=== PATIENT | male | born 1945 | race Caucasian/White ===

== ENCOUNTER 2023-04-14 13:52 | Outpatient (AMB) | payer MEDICARE, OTHER, SELFPAY ==
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
[2023-04-14 14:16] VITALS: BP 136/74; PULSE 90; RESP 16; O2SAT 96; BMI 23.4
== END 2023-04-14 15:02 | disposition home or self-care (01) ==
PROVIDERS: PCP Family Medicine; Visit Provider Registered Nurse Emergency
DX: M96.1 Postlaminectomy syndrome, not elsewhere classified (principal); M54.16 Radiculopathy, lumbar region; M47.816 Spondylosis without myelopathy or radiculopathy, lumbar region; Z79.891 Long term (current) use of opiate analgesic; M54.12 Radiculopathy, cervical region; M47.812 Spondylosis without myelopathy or radiculopathy, cervical region
CPT/HCPCS: 99204

== ENCOUNTER 2023-04-14 13:52 | Outpatient (REF) | payer MEDICARE, OTHER, SELFPAY ==
--- NOTE | ~2023-04-14 | XR_ITS ---
EXAMINATION: CERVICAL SPINE 3 VIEWS CLINICAL INFORMATION: Postlaminectomy syndrome. COMPARISON: None. TECHNIQUE: Frontal, odontoid, bilateral oblique and lateral views of the cervical spine are obtained. FINDINGS: Vertebral body heights and alignment are normal. At C3-C4, there is mild to moderate disc space narrowing, with mild anterior spondylosis. There is well-maintained alignment status-post C4 through C8 anterior fusions and discectomies. No hardware failure or loosening is seen. Acute fracture or spondylolisthesis is seen. The posterior elements are intact. There is bilateral neural foraminal narrowing at C3-C4, and left neural foraminal narrowing is seen at C4-C5. There is no prevertebral soft tissue swelling or gas. The dens and C7-T1 interface are normal. XR/XR lumbar spine 4V min IMPRESSION: 1. There is mild to moderate degenerative disc disease at C3-C4. 2. There is well-maintained alignment status-post C4 through C8 anterior fusions and discectomies. No hardware failure or loosening is seen. 3. There is bilateral neural foraminal narrowing at C3-C4, and left neural foraminal narrowing is seen at C4-C5. EXAMINATION: XR THORACIC SPINE CLINICAL INFORMATION: Postlaminectomy syndrome. COMPARISON: None available. TECHNIQUE: Frontal, lateral and swimmer's views of the thoracic spine were obtained. FINDINGS: There is bony demineralization. Vertebral body heights and alignment are normal. There is mild disc space narrowing at T8-T9. The remaining thoracic disc spaces are well-maintained. No acute fracture or spondylolisthesis is seen. The posterior elements are intact. The paravertebral soft tissues are unremarkable. IMPRESSION: 1. No acute fracture or spondylolisthesis is seen. 2. There is mild degenerative disc disease at T8-T9. EXAMINATION: XR LUMBOSACRAL SPINE CLINICAL INFORMATION: Postlaminectomy syndrome. COMPARISON: None TECHNIQUE: AP, bilateral oblique and lateral views of the lumbar spine and lateral view of the lumbosacral junction. FINDINGS: There is bony demineralization. There is well-maintained alignment status-post L1-L4 posterior fusions. There have been prior L2-L3 through L4-L5 discectomies, with intact disc spaces. No hardware failure loosening is seen. There is marked degenerative disc disease at L5-S1, with vacuum phenomenon, spondylosis and facet arthropathy. The paravertebral soft tissues are unremarkable. A left pelvic bowel anastomotic staple line is seen. IMPRESSION: 1. There is well-maintained alignment status-post L1-L4 posterior fusions and L2-L3 through L4-L5 discectomies. No hardware failure or loosening is seen. 2. At L5-S1, there is marked degenerative disc disease, with spondylosis and facet arthropathy.
== END 2023-04-14 13:53 | disposition home or self-care (01) ==
LOC: HO.XRAY 13:52
PROVIDERS: PCP Family Medicine; Visit Provider Registered Nurse Emergency
DX: M96.1 Postlaminectomy syndrome, not elsewhere classified (principal); M54.16 Radiculopathy, lumbar region; M47.816 Spondylosis without myelopathy or radiculopathy, lumbar region; M54.12 Radiculopathy, cervical region; M47.812 Spondylosis without myelopathy or radiculopathy, cervical region; F11.90 Opioid use, unspecified, uncomplicated
CPT/HCPCS: 72050; 72072; 72110

== ENCOUNTER 2023-04-26 09:33 | Outpatient (AMB) | payer MEDICARE, OTHER, SELFPAY ==
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
== END 2023-04-26 09:49 | disposition home or self-care (01) ==
PROVIDERS: PCP Family Medicine; Visit Provider Anesthesiology
DX: M47.812 Spondylosis without myelopathy or radiculopathy, cervical region (principal); M54.12 Radiculopathy, cervical region; M47.816 Spondylosis without myelopathy or radiculopathy, lumbar region; Z79.891 Long term (current) use of opiate analgesic; M54.16 Radiculopathy, lumbar region; M96.1 Postlaminectomy syndrome, not elsewhere classified
CPT/HCPCS: 99443

== ENCOUNTER → 2023-04-26 09:33 | Outpatient (BNVA) | payer MEDICARE, OTHER, SELFPAY | PROVIDERS: PCP Family Medicine; Visit Provider Anesthesiology ==